=== PATIENT | female | born 1940 | race African-American/Black ===

== ENCOUNTER 2017-10-26 05:54 | Inpatient (IN) | payer OTHER ==
[2017-10-21 10:34] VITALS: BMI 37.5
[~2017-10-26 05:54] MED LIST: ROPIVICAINE 0.2%/MORPH PF/KETOROLAC - 51ML DISP.SYRINGE IA ONE; TRANEXAMIC ACID 1000 MG/10 ML VIAL IVPUSH ONE; oxyCODONE HCL 10 MG SUSTAINED ACTING TABLET PO ONE
[2017-10-26] MEDS ORDERED: oxyCODONE HCL 10 MG SUSTAINED ACTING TABLET ONE (06:24)
[2017-10-26] MEDS ORDERED: MIDAZOLAM HCL 2 MG/2 ML SINGLE DOSE VIAL ONE (06:49)
[2017-10-26] MEDS ORDERED: BUPIVACAINE HCL/PF (5 MG/ML) 30 ML VIAL IJ ONE (06:49)
[2017-10-26] MEDS ORDERED: DEXAMETHASONE SOD PHOSPHATE/PF 10 MG/ML SDV ONE (06:49)
[2017-10-26] MEDS ORDERED: BUPIVACAINE HCL/PF 0.5% (5MG/ML) 10 ML VIAL ONE (06:57)
[2017-10-26] MEDS ORDERED: ePHEDrine SULFATE 50 MG/1 ML AMPULE ONE (07:02)
[2017-10-26] MEDS ORDERED: PROPOFOL 20 ML ONE ×5 (07:03)
[2017-10-26] MEDS ORDERED: SUCCINYLCHOLINE CHLORIDE 200 MG/10 ML VIAL ONE (07:03)
[2017-10-26] MEDS ORDERED: TRANEXAMIC ACID 1000 MG/10 ML VIAL ONE (07:08)
[2017-10-26] MEDS ORDERED: ceFAZolin SODIUM 1 GM VIAL ONE (07:08)
[2017-10-26] MEDS ORDERED: ROCURONIUM BROMIDE 50 MG/5 ML VIAL ONE (07:13)
[2017-10-26] MEDS ORDERED: VANCOMYCIN 1,000 MG in DEXTROSE 5%-WATER - 250 ML IVPB ONE (08:00)
[2017-10-26] MEDS ORDERED: CEFAZOLIN 2 GM in DEXTROSE 5%-WATER - 50 ML IVPB ONE (08:00)
[2017-10-26] MEDS ORDERED: ROPIVICAINE 0.2%/MORPH PF/KETOROLAC - 51ML DISP.SYRINGE IA ONE (09:00)
[2017-10-26] MEDS ORDERED: TRANEXAMIC ACID 1000 MG/10 ML VIAL IVPUSH ONE (09:15)
[2017-10-26] MEDS ORDERED: ALBUTEROL SO4 18 GM HFA INHALER IH PRN (10:22)
--- NOTE | 2017-10-26 10:22 | OP ---
Operative Note - Note: Operative Date: 10/26/17 Pre-Operative Diagnosis: Right hip DJD Operation: Right total hip replacement Implants: [place]. Cup - Tritanium, 52mm. Poly - 28mm, neutral. Stem - SecureFit Advanced, #6, High Offset. Head - 28mm, Biolox/Ceramic, +4mm Post-Operative Diagnosis: Same as Pre-op Surgeon: Burt Rousseau [employer] Editor: Gunnar Rousseau Anesthesia: Spinal Specimens Removed: Right femoral head Estimated Blood Loss (mls): 150 Operative Report Dictated: Yes
[2017-10-26] MEDS ORDERED: ONDANSETRON 4 MG/2 ML VIAL IVPUSH PRN (10:24)
[2017-10-26] MEDS ORDERED: MAG HYDROX/AL HYDROX/SIMETH 30 ML UNIT-DOSE CUP PO PRN (10:24)
[2017-10-26] MEDS ORDERED: MAGNESIUM HYDROX 2400MG/30ML ORAL SUSPENSION 30 ML CUP PO PRN (10:24)
[2017-10-26] MEDS ORDERED: LACTATED RINGERS SOLUTION 1,000 ML IV SCH ×2 (10:30→13:59)
[2017-10-26] MEDS ORDERED: ACETAMINOPHEN 325 MG TABLET (FP) ONE (11:14)
--- NOTE | 2017-10-26 13:45 | HP ---
HISTORY OF PRESENT ILLNESS Patient is a 77 y/o female with a past medical history of asthma, parosymal afib (coumadin), aortic stenosis, breast cancer, hypothyroidism, hypertension, OA, and hyperlipidemia. Patient was admitted for elective right total hip replacement, Dr Rousseau, 10/26/17. PCP: Dr Hudson life insurance agent: Dr Betancourt Recent travel: none Family History: non contributory Social History:resides at home Smoking:none Alcohol:none Drugs: none REVIEW OF SYSTEMS CONSTITUTIONAL: Absent: fever, chills, diaphoresis, generalized weakness, malaise, loss of appetite, weight change HEENT: Absent: rhinorrhea, nasal congestion, throat pain, throat swelling, difficulty swallowing, mouth swelling, ear pain, eye pain, visual changes CARDIOVASCULAR: Absent: chest pain, syncope, palpitations, irregular heart rate, lightheadedness , peripheral edema RESPIRATORY: Absent: cough, shortness of breath, dyspnea with exertion, orthopnea, wheezing, stridor, hemoptysis GASTROINTESTINAL: Absent: abdominal pain, abdominal distension, nausea, vomiting, diarrhea, constipation, melena, hematochezia GENITOURINARY: Absent: dysuria, frequency, urgency, hesitancy, hematuria, flank pain, genital pain MUSCULOSKELETAL: Present: right hip pain Absent: myalgia, arthralgia, joint swelling, back pain, neck pain SKIN: Absent: rash, itching, pallor HEMATOLOGIC/IMMUNOLOGIC: Absent: easy bleeding, easy bruising, lymphadenopathy, frequent infections ENDOCRINE: Absent: unexplained weight gain, unexplained weight loss, heat intolerance, cold intolerance NEUROLOGIC: Absent: headache, focal weakness or paresthesias, dizziness, unsteady gait, seizure, mental status changes, bladder or bowel incontinence PSYCHIATRIC: Absent: anxiety, depression, suicidal or homicidal ideation, hallucinations. PHYSICAL EXAMINATION: Vital Signs Temperature 97.8 F 10/26/17 11:35 Pulse Rate 60 10/26/17 11:35 Respiratory Rate 16 10/26/17 11:35 Blood Pressure 157/85 10/26/17 11:35 O2 Sat by Pulse Oximetry (%) 98 10/26/17 11:25 GENERAL: Awake, alert, and fully oriented, in no acute distress. HEAD: Normal with no signs of trauma. EYES: Pupils equal, round and reactive to light, extraocular movements intact, sclera anicteric, conjunctiva clear. No lid lag. EARS, NOSE, THROAT: Ears normal, nares patent, oropharynx clear without exudates. Moist mucous membranes. NECK: Normal range of motion, supple without lymphadenopathy, JVD, or masses. LUNGS: Breath sounds equal, clear to auscultation bilaterally. No wheezes, and no crackles. No accessory muscle use. HEART: Regular rate and rhythm, normal S1 and S2, 3/6 systolic murmur, rub or gallop. ABDOMEN: Soft, nontender, not distended, normoactive bowel sounds, no guarding, no rebound, no masses. No hepatomegaly or splenomegaly. MUSCULOSKELETAL: Normal range of motion at all joints. No bony deformities or tenderness. No CVA tenderness. UPPER EXTREMITIES: 2+ pulses, warm, well-perfused. No cyanosis. No clubbing. No peripheral edema. LOWER EXTREMITIES: 2+ pulses, warm, well-perfused. No calf tenderness. No peripheral edema. RIGHT LOWER EXTREMITY: aguacel dressing intact, CDI, less than 3 second capillary refill, + 3 pedal pulse NEUROLOGICAL: Cranial nerves II-XII intact. Normal speech. Normal gait. PSYCHIATRIC: Cooperative. Good eye contact. Appropriate mood and affect. SKIN: Warm, dry, normal turgor, no rashes or lesions noted, normal capillary refill. Active Medications Generic Name Dose Route Start Last Admin Trade Name Freq PRN Reason Stop Dose Admin Al Hydroxide/Mg Hydroxide 30 ml 10/26/17 10:24 Mylanta Oral Suspension - PO Q4H PRN DYSPEPSIA Albuterol Sulfate 1 - 2 puff 10/26/17 10:22 Ventolin Hfa Inhaler - IH QID PRN WHEEZING Atorvastatin Calcium 40 mg 10/26/17 22:00 Lipitor - PO HS BRISEIDA Cholecalciferol 2,000 unit 10/27/17 10:00 Vitamin D3 - PO DAILY BRISEIDA Enoxaparin Sodium 30 mg 10/26/17 22:00 Lovenox - SQ BID BRISEIDA Furosemide 40 mg 10/26/17 18:00 Lasix - PO BID@0600,1800 BRISEIDA Cefazolin Sodium/Dextrose 2 gm in 50 mls @ 100 mls/hr 10/26/17 16:00 Ancef 2 Gm Premixed Ivpb - IVPB 10/27/17 00:29 Q8H BRISEIDA Lactated Ringer's 1,000 mls @ 125 mls/hr 10/26/17 10:30 10/26/17 12:52 Lactated Ringers Solution IV 10/27/17 06:00 Not Given [facility] Levothyroxine Sodium 125 mcg 10/27/17 07:00 Synthroid - PO DAILY@0700 BRISEIDA Magnesium Hydroxide 30 ml 10/26/17 10:24 Milk Of Magnesia - PO PRN PRN CONSTIPATION Metoprolol Succinate 25 mg 10/27/17 10:00 Toprol Xl - PO DAILY [facility] Ondansetron HCl 4 mg 10/26/17 10:24 Zofran Injection IVPUSH Q6H PRN NAUSEA Pantoprazole Sodium 40 mg 10/27/17 10:00 Protonix - PO DAILY [facility] Senna/Docusate Sodium 2 tablet 10/26/17 22:00 Pericolace - PO BID [facility] ASSESSMENT/PLAN: 1) MS: right total hip replacement (POD #0) - Dr Rousseau consulted and following - prn pain medication - physical therapy as per the orthopedist 2) cardiovascular aortic stenosis - echo reviewed 06/06/17, normal LV, ef 65%, moderate aortic stenosis - strict monitoring of I/o diastolic CHF - pt appears euvolemic on exam - continue lasix 40mg bid, pt's home dose paroxysmal afib - nsr, continue toprol - hold coumadin, restart once cleared by orthopedist, continue lovenox 3) pulm asthma - continue prn albuterol - incentive spirometer f/e/n - low sodium diet - replete lytes prn ppx - protonix - lovenox - scd/luis - pt dispo: pt requires inpatient admission. Visit type - Case Type Case Type: Scheduled Admission - Emergency Emergency Visit: No - New patient This patient is new to me today: Yes Date on this admission: 10/26/17 - Critical Care Critical Care patient: No
[2017-10-26] MEDS ORDERED: oxyCODONE HCL 5 MG TABLET ONE (14:08)
[2017-10-26] MEDS ORDERED: oxyCODONE HCL 5 MG TABLET PO ONE (14:09)
[2017-10-26] MEDS ORDERED: oxyCODONE HCL 5 MG TABLET PO PRN (14:24)
[2017-10-26] MEDS: oxyCODONE HCL 5 MG TABLET PO PRN (14:57)
[2017-10-26] MEDS ORDERED: HYDROmorphone HCL CARPU-JECT 2 MG/1 ML DISP.SYRIN IVPB PRN (15:57)
[2017-10-26] MEDS ORDERED: KETOROLAC TROMETHAMINE 30 MG/1 ML VIAL IVPUSH ONE (16:00)
[2017-10-26] MEDS: CEFAZOLIN 2 GM/D5W 2 GM/50 ML ML IVPB SCH ×2 (16:58→23:58)
--- NOTE | 2017-10-26 21:12 | OP ---
DATE OF OPERATION: 10/26/2017 SURGEON: Burt Rousseau MD RN OTOLARYNGOLOGY: Gunnar Rousseau MD PREOPERATIVE DIAGNOSIS: Osteoarthritis, right hip. OPERATION PERFORMED: Right cemented total hip arthroplasty (Ta). ANESTHESIA: Spinal with conscious sedation. ANTIBIOTICS GIVEN: Kefzol 2 g given preoperative, vancomycin 1 g preoperative, Kefzol 1 g given at the time of seating of the femoral component. BLOOD LOSS: 150 mL PROCEDURE: The patient was correctly identified and brought into the operating room. The right lower extremity was prepped, free draped in the routine manner with Betadine scrub solution, wiped off with alcohol, DuraPrep applied. A free drape applied. The imaging was available for intraoperative evaluation and a timeout was called appropriately. With the hip and knee flexed at 45 degrees, an incision was made in the skin centered over the greater trochanter. The fascia was opened. A Charnley retractor was inserted in the subfascial plane. Hemostasis achieved. Using anterior-biased direct lateral approach, the anterior slivers of gluteus medius were lifted, the entire capsule lifted off the femur from the superolateral aspect of the femoral head to the inferomedial aspect of the femoral head with 2 radial cuts placed longitudinally in the capsule to help an easy dislocation by flexion, adduction, external rotation. The neck cut was made 1 cm above the lesser trochanter in accordance with the principles of Charnley. An anterior, posterior, inferior retractor was inserted. This gave very adequate access to the acetabulum. The reaming using the [employer] reaming system was to size 51, and a size 52 multi-hole cup was inserted. This was a grit-blasted Triathlon-type cup. This was closed at 40 degrees and about 5 degrees anteverted. The cup was inserted with solid Press-Fit fixation being achieved. A 28-mm liner, 4 crosslink polyethylene inserted. No complications in cup seating. The hip was flexed, adducted, externally rotated. After holding the hip abductor muscle out of harm's way, the femoral component was reamed and broached to size 6. The +4/28-mm ceramic head applied to the trunnion, reduced into position. Complete stability in flexion, abduction, internal rotation as well as extension and external rotation achieved. A small fracture of the greater trochanter was left alone. The periosteum was left intact. The entire trochanter was sutured back into position and held in position accordingly. This all within the confines of the soft tissue sleeve. There was no need to affix this small fragment back into position. The closure was as follows: After thorough lavage of the tissues, fascia 1 Vicryl, subcutaneous 1 and 2-0 Vicryl, skin 3-0 Monocryl, Steri-Strips. DRAINAGE: Nil. Operation went well. No complications. MD ZAYDA Naylor/[id number]
[2017-10-26] MEDS: ATORVASTATIN CA 40 MG TABLET (FP) PO SCH (22:01)
[2017-10-26] MEDS: GABAPENTIN 300 MG CAPSULE (FP) PO SCH (22:01)
[2017-10-26] MEDS: SENNOSIDES/DOCUSATE COMBO (SENNA PLUS) TABLET (UD) PO SCH (22:01)
[2017-10-26] MEDS: ENOXAPARIN NA (PORCINE) 30 MG/0.3 ML DISP.SYRIN SQ SCH (22:02)
[2017-10-26] MEDS: ACETAMINOPHEN 325 MG TABLET (FP) PO SCH (22:02)
[2017-10-27] MEDS: FUROSEMIDE 40 MG TABLET (FP) PO SCH ×2 (06:17→17:55)
[2017-10-27] MEDS: LEVOTHYROXINE NA 125 MCG TABLET (FP) PO SCH (06:18)
[2017-10-27] MEDS: ACETAMINOPHEN 325 MG TABLET (FP) PO SCH ×4 (06:18→17:55)
[2017-10-27] MEDS: oxyCODONE HCL 10 MG SUSTAINED ACTING TABLET PO SCH ×3 (06:18→21:49)
[2017-10-27 08:44] LABS: ANION GAP 10 (8-16); BLOOD UREA NITROGEN 22 mg/dl (7-18); CALCIUM 8.3 mg/dl (8.4-10.2); CHLORIDE 95 mmol/L (98-107); CO2 28 mmol/L (22-28); CREATININE 0.9 mg/dl (0.6-1.3); GLUCOSE,RANDOM 136 mg/dl (74-106); POTASSIUM 3.7 mmol/L (3.5-5.1); SODIUM 133 mmol/L (136-145)
[2017-10-27 08:52] LABS: HEMATOCRIT 31.3 % (32.4-45.2); HEMOGLOBIN 10.1 GM/dl (10.7-15.3); MCH 28.2 pg (25.7-33.7); MCHC 32.3 g/dl (32.0-36.0); MEAN CELL VOLUME 87.4 fl (80-96); MEAN PLT VOLUME 13.6 fl (7.5-11.1); RBC 3.58 M/mm3 (3.60-5.2); RDW 13.1 % (11.6-15.6); WHITE BLOOD COUNT 16.7 K/mm3 (4.0-10.8)
--- NOTE | 2017-10-27 08:56 | PN ---
Physical Exam: SUBJECTIVE: Patient seen and examined, ambulatory at bedside with a waker, reports pain to right lower extremity upon movement. OBJECTIVE:Patient is a 77 y/o female with a past medical history of asthma, parosymal afib (coumadin), aortic stenosis, breast cancer, hypothyroidism, hypertension, OA, and hyperlipidemia. Vital Signs Period Temp Pulse Resp BP Sys/Kebede Pulse Ox Last 24 Hr 97.4 F-97.8 F 53-72 16-19 145-175/53-95 98-100 GENERAL: The patient is awake, alert, and fully oriented, in no acute distress. HEAD: Normal with no signs of trauma. EYES: PERRL, extraocular movements intact, sclera anicteric, conjunctiva clear. No ptosis. ENT: Ears normal, nares patent, oropharynx clear without exudates, moist mucous membranes. NECK: Trachea midline, full range of motion, supple. LUNGS: Breath sounds equal, clear to auscultation bilaterally, no wheezes, no crackles, no accessory muscle use. HEART: Regular rate and rhythm, S1, S2 without murmur, rub or gallop. ABDOMEN: Soft, nontender, nondistended, normoactive bowel sounds, no guarding, no rebound, no hepatosplenomegaly, no masses. EXTREMITIES: 2+ pulses, warm, well-perfused, no edema. RIGHT LOWER EXTREMITY: aguacel dressing intact, CDI, less than 3 second capillary refill, +3 pedal pulse. NEUROLOGICAL: Cranial nerves II through XII grossly intact. Normal speech, gait not observed. PSYCH: Normal mood, normal affect. SKIN: Warm, dry, normal turgor, no rashes or lesions noted Active Medications Generic Name Dose Route Start Last Admin Trade Name Freq PRN Reason Stop Dose Admin Acetaminophen 650 mg 10/26/17 18:00 10/27/17 06:18 Tylenol - PO 10/29/17 17:59 650 mg Q6H BRISEIDA Administration Al Hydroxide/Mg Hydroxide 30 ml 10/26/17 10:24 Mylanta Oral Suspension - PO Q4H PRN DYSPEPSIA Albuterol Sulfate 1 - 2 puff 10/26/17 10:22 Ventolin Hfa Inhaler - IH QID PRN WHEEZING Atorvastatin Calcium 40 mg 10/26/17 22:00 10/26/17 22:01 Lipitor - PO 40 mg HS BRISEIDA Administration Cholecalciferol 2,000 unit 10/27/17 10:00 Vitamin D3 - PO DAILY [facility] Enoxaparin Sodium 30 mg 10/26/17 22:00 10/26/17 22:02 Lovenox - SQ 30 mg BID [facility] Administration Fentanyl 50 mcg 10/26/17 14:24 Sublimaze Injection - IVPUSH [id number] PRN PAIN Furosemide 40 mg 10/26/17 18:00 10/27/17 06:17 Lasix - PO 40 mg BID@0600,1800 [facility] Administration Gabapentin 300 mg 10/26/17 22:00 10/26/17 22:01 Neurontin - PO 300 mg BID [facility] Administration Levothyroxine Sodium 125 mcg 10/27/17 07:00 10/27/17 06:18 Synthroid - PO 125 mcg DAILY@0700 [facility] Administration Magnesium Hydroxide 30 ml 10/26/17 10:24 Milk Of Magnesia - PO PRN PRN CONSTIPATION Metoprolol Succinate 25 mg 10/27/17 10:00 Toprol Xl - PO DAILY [facility] Ondansetron HCl 4 mg 10/26/17 10:24 Zofran Injection IVPUSH Q6H PRN NAUSEA Oxycodone HCl 5 mg 10/26/17 14:24 10/27/17 06:21 Roxicodone - PO 5 mg Q3H PRN Administration PAIN LEVEL 1-5 Oxycodone HCl 10 mg 10/26/17 14:24 10/26/17 14:57 Roxicodone - PO 10 mg Q3H PRN Administration PAIN LEVEL 6-10 Oxycodone HCl 10 mg 10/26/17 22:00 10/27/17 06:18 Oxycontin - PO 10/29/17 14:24 Not Given BID [facility] Pantoprazole Sodium 40 mg 10/27/17 10:00 Protonix - PO DAILY [facility] Senna/Docusate Sodium 2 tablet 10/26/17 22:00 10/26/17 22:01 Pericolace - PO 2 tablet BID [facility] Administration ASSESSMENT/PLAN: 1) MS: right total hip replacement (POD #1) - Dr Rousseau consulted and following - prn pain medication - physical therapy as per the orthopedist 2) cardiovascular aortic stenosis - echo reviewed 06/06/17, normal LV, ef 65%, moderate aortic stenosis - strict monitoring of I/o diastolic CHF - pt appears euvolemic on exam - continue lasix 40mg bid, pt's home dose paroxysmal afib - nsr, continue toprol - discussed with Dr Rousseau, restart coumadin first dose tonight, INR in AM will bridge with lovenox 3) pulm asthma - continue prn albuterol - incentive spirometer f/e/n - low sodium diet - replete lytes prn ppx - protonix - lovenox/coumadin - scd/luis - pt dispo: pt requires inpatient admission. Visit type - Emergency Visit Emergency Visit: No - New Patient This patient is new to me today: No - Critical Care Critical Care patient: No - Discharge Referral Referred to [facility] Med P.C.: No
[2017-10-27] MEDS: PANTOPRAZOLE 40 MG TABLET (FP) PO SCH (09:22)
[2017-10-27] MEDS: SENNOSIDES/DOCUSATE COMBO (SENNA PLUS) TABLET (UD) PO SCH ×2 (09:23→21:49)
[2017-10-27] MEDS: CHOLECALCIFEROL (VITAMIN D3) 1,000 UNIT TABLET (FP) PO SCH (09:23)
[2017-10-27] MEDS: METOPROLOL SUCCINATE 25 MG TAB.SR.24H (FP) PO SCH (09:23)
[2017-10-27] MEDS: GABAPENTIN 300 MG CAPSULE (FP) PO SCH ×2 (09:23→21:49)
[2017-10-27] MEDS: ENOXAPARIN NA (PORCINE) 30 MG/0.3 ML DISP.SYRIN SQ SCH ×2 (09:24→21:51)
[2017-10-27 09:53] LABS: PLATELET COUNT 208 K/MM3 (134-434)
[2017-10-27] MEDS ORDERED: PATIENT'S OWN MEDICATION (NON-FORMULARY) (Omeprazole [Omeprazole] 20 MG) PO SCH (10:00)
--- NOTE | 2017-10-27 10:58 | PN ---
Progress Note (short form) - Note Progress Note: 77F POD1 s/p right THR under spinal anesthetic with peripheral nerve blocks for post operative pain control. Pt is moderately controlled, does not report any anesthetic complications. Sensory and motor function intact in bilateral lower extremities.
[2017-10-27] MEDS ORDERED: WARFARIN NA 2 MG TABLET (UD) PO SCH (18:00)
[2017-10-27] MEDS: oxyCODONE HCL 5 MG TABLET PO PRN (19:45)
[2017-10-27] MEDS: ATORVASTATIN CA 40 MG TABLET (FP) PO SCH (21:49)
[2017-10-28] MEDS: ACETAMINOPHEN 325 MG TABLET (FP) PO SCH ×3 (04:06→12:56)
[2017-10-28] MEDS: oxyCODONE HCL 5 MG TABLET PO PRN ×2 (04:06→12:56)
[2017-10-28] MEDS: LEVOTHYROXINE NA 125 MCG TABLET (FP) PO SCH (06:10)
[2017-10-28] MEDS: FUROSEMIDE 40 MG TABLET (FP) PO SCH (06:10)
[2017-10-28 08:47] LABS: HEMATOCRIT 29.2 % (32.4-45.2); HEMOGLOBIN 9.4 GM/dl (10.7-15.3); MCH 28.1 pg (25.7-33.7); MCHC 32.1 g/dl (32.0-36.0); MEAN CELL VOLUME 87.7 fl (80-96); MEAN PLT VOLUME 13.3 fl (7.5-11.1); RBC 3.33 M/mm3 (3.60-5.2); RDW 13.4 % (11.6-15.6); WHITE BLOOD COUNT 16.1 K/mm3 (4.0-10.8)
[2017-10-28 08:53] LABS: ANION GAP 9 (8-16); BLOOD UREA NITROGEN 28 mg/dl (7-18); CALCIUM 8.4 mg/dl (8.4-10.2); CHLORIDE 99 mmol/L (98-107); CO2 27 mmol/L (22-28); GLUCOSE,RANDOM 118 mg/dl (74-106); MAGNESIUM 1.8 mg/dL (1.8-2.4); POTASSIUM 3.5 mmol/L (3.5-5.1); SODIUM 135 mmol/L (136-145)
[2017-10-28 09:01] LABS: INR 1.07 (0.82-1.09)
[2017-10-28] MEDS: oxyCODONE HCL 10 MG SUSTAINED ACTING TABLET PO SCH (09:45)
[2017-10-28] MEDS ORDERED: POTASSIUM CHLORIDE TABS 20 MEQ TABLET.ER (FP) PO SCH (10:00)
--- NOTE | 2017-10-28 10:48 | DS ---
Physical Exam: SUBJECTIVE: Patient seen and examined, sitting in bedside chair, reports a dull ache to the right hip, denies any paresthesia to the extremity, patient denies any chest pain or shortness of breath. OBJECTIVE: Patient is a 77 y/o female with a past medical history of asthma, parosymal afib (coumadin), aortic stenosis, breast cancer, hypothyroidism, hypertension, OA, and hyperlipidemia. Patient was admitted for elective right total hip replacement, Dr Rousseau, 10/26/17. Vital Signs Period Temp Pulse Resp BP Sys/Kebede Pulse Ox Last 24 Hr 98.0 F-98.5 F 59-92 18-19 126-142/43-58 94-98 PHYSICAL EXAM GENERAL: The patient is awake, alert, and fully oriented, in no acute distress. HEAD: Normal with no signs of trauma. EYES: PERRL, extraocular movements intact, sclera anicteric, conjunctiva clear. No ptosis. ENT: Ears normal, nares patent, oropharynx clear without exudates, moist mucous membranes. NECK: Trachea midline, full range of motion, supple. LUNGS: Breath sounds equal, clear to auscultation bilaterally, no wheezes, no crackles, no accessory muscle use. HEART: Regular rate and rhythm, S1, S2 without murmur, rub or gallop. ABDOMEN: Soft, nontender, nondistended, normoactive bowel sounds, no guarding, no rebound, no hepatosplenomegaly, no masses. EXTREMITIES: 2+ pulses, warm, well-perfused, no edema. RIGHT LOWER EXTREMITY: aguacel dressing intact, CDI, less than 3 second capillary refill, +3 pedal pulse. NEUROLOGICAL: Cranial nerves II through XII grossly intact. Normal speech, gait not observed. PSYCH: Normal mood, normal affect. SKIN: Warm, dry, normal turgor, no rashes or lesions noted LABS Laboratory Results - last 24 hr 10/28/17 10/28/17 10/28/17 07:50 07:50 07:50 WBC 16.1 H RBC 3.33 L Hgb 9.4 L Hct 29.2 L MCV 87.7 MCH 28.1 MCHC 32.1 RDW 13.4 MPV 13.3 H Neutrophils % No Result Required. Lymphocytes % No Result Required. PT with INR 12.0 INR 1.07 Sodium 135 L Potassium 3.5 Chloride 99 Carbon Dioxide 27 Anion Gap 9 BUN 28 H D Creatinine 1.0 Random Glucose 118 H Calcium 8.4 Magnesium 1.8 HOSPITAL COURSE: Patient was admitted from the emergency department for a right total hip replacement (POD #2), Dr Rousseau. Patient ambulated independently with the assistance of a walker on POD #1, with physical therapy. Pain was managed with both narcotic and non-narcotic pain medication. Patient has a past medical history of aortic stenosis, echo reviewed 06/06/17, normal LV, ef 65%, moderate aortic stenosis, strict monitoring of I/O. Patient has a past medical history of diastolic CHF, she was euvolemic throughtout admission. lasix 40mg bid was continued, patient's home dose. Patient has a past medical history of paroxysmal afib,toprol was continued. Discussed with Dr Rousseau, restarted coumadin on 10/27/17, INR noted with bridge to coumadin. Patient has past medical history of asthma, no acute excerbation was noted. PLAN - discharge to short term rehab to SNF, upon the request of patient - continue lovenox with bridge to coumadin Date of Admission:10/26/17 Date of Discharge: 10/28/17 Minutes to complete discharge: 45 Discharge Summary Reason For Visit: OSTEOARTHRITIS RIGHT HIP Condition: Improved - Instructions Diet, Activity, Other Instructions: Post-op Instructions-Total Hip Replacement Call the office for a follow-up appointment in 1 week continue lovenox and coumadin until INR is therepeutic Apply Graduated Compression Stockings (TEDs) to both lower extremities- remove daily for hygiene ONLY Apply cold packs to affected area for 15 minutes every 2 hours. Physical Therapist will come to your home for the first 5 days. You will be set up with outpatient PT at your first post-operative visit. Patient may ambulate as tolerated-encourage self care (at least every 2-3 hours while awake) with walker or cane Maintain Aquacel (waterproof) dressing to operative wound (will be removed by surgeon at first office visit) Shower with Aquacel dressing in place-if Aquacel integrity compromised, remove and apply dry sterile dressing and notify Orthopedist. DO NOT SHOWER unless Orthopedists approves without Aquacel dressing CONTACT THE OFFICE FOR ANY CHANGE IN YOUR CONDITION (for example-fever greater than 102 degrees,excessive bleeding from operative site, purulent drainage, severe swelling or pain) GO TO THE EMERGENCY ROOM IF THERE IS A MEDICAL EMERGENCY Hip Precautions: * Keep a rolled towel under affected heel while in bed or chair (to keep knee in extension) * If you have any questions, please do not hesitate to call the office Referrals: Gunnar Rousseau MD [Staff Physician] - Disposition: [facility] - Home Medications Comprehensive Discharge Medication List: Ambulatory Orders Albuterol Sulfate Inhaler - [Ventolin Hfa Inhaler -] 1 - 2 inh PO QID PRN Atorvastatin Ca [Lipitor] 40 mg PO HS 10/21/17 Cholecalciferol (Vitamin D3) [Vitamin D] 2,000 unit PO DAILY 10/21/17 Furosemide [Lasix -] 40 mg PO BID 10/21/17 Levothyroxine [Synthroid -] 125 mcg PO DAILY 10/21/17 Metoprolol Succinate [Toprol Xl] 25 mg PO DAILY 10/21/17 RX: Omeprazole 20 mg PO DAILY 10/21/17 RX: Warfarin Sodium 4 mg PO HS 10/21/17 This patient is new to me today: No Emergency Visit: No Critical Care patient: No - Discharge Referral Referred to [facility] Med P.C.: No
[2017-10-28] MEDS: CHOLECALCIFEROL (VITAMIN D3) 1,000 UNIT TABLET (FP) PO SCH (10:52)
[2017-10-28] MEDS: SENNOSIDES/DOCUSATE COMBO (SENNA PLUS) TABLET (UD) PO SCH (10:52)
[2017-10-28] MEDS: GABAPENTIN 300 MG CAPSULE (FP) PO SCH (10:52)
[2017-10-28] MEDS: ENOXAPARIN NA (PORCINE) 30 MG/0.3 ML DISP.SYRIN SQ SCH (10:53)
[2017-10-28] MEDS: PANTOPRAZOLE 40 MG TABLET (FP) PO SCH (10:53)
[2017-10-28] MEDS: METOPROLOL SUCCINATE 25 MG TAB.SR.24H (FP) PO SCH (10:55)
[2017-10-28 11:35] LABS: PLATELET COUNT 187 K/MM3 (134-434)
[2017-10-28 11:36] LABS: PLATELET ESTIMATE ADEQUATE
--- NOTE | 2017-10-28 12:57 | PATH ---
Surgical Pathology Report Patient Name: MOY TENORIO Med. Rec. #: [id number] /Age/Gender: 1940 (Age: 77) / F Account: [id number] Location: [facility] MED-SURG Taken: 10/26/2017 Received: 10/26/2017 Reported: 10/28/2017 Physicians: Burt Rousseau M.D. Specimen(s) Received RIGHT FEMORAL HEAD Clinical History Osteoarthritis Final Diagnosis FEMORAL HEAD, RIGHT, TOTAL HIP REPLACEMENT: BONE WITH DEGENERATIVE JOINT DISEASE. Electronically Signed Radha Day M.D. Gross Description Received in formalin, labeled "right femoral head," is a 4.5 x 4.5 x 4.2 cm. femoral head with a 1.3 cm in length portion of femoral neck attached. The margin of resection is smooth. No areas of eburnation are identified. The articular surface is smalls-yellow and diffusely granular. The underlying trabecular bone is yellow and hard. A door to door sales representative section is submitted in one cassette, following decalcification. 10/27/2017 [facility]2017
[2017-10-28 14:08] VITALS: BP 148/45; PULSE 75; TEMP 98
== END 2017-10-28 16:11 | DRG 470 ==
LOC: FM/S 05:54
PROVIDERS: ADMIT Internal Medicine; ATTEND Nurse Practitioner Family
PROC: 0SR90J9 Replacement of Right Hip Joint with Synthetic Substitute, Cemented, Open Approach (ICD-10-PCS; principal; 2017-10-26 08:43)
DX: M16.11 Unilateral primary osteoarthritis, right hip (principal); I50.30 Unspecified diastolic (congestive) heart failure; I11.0 Hypertensive heart disease with heart failure; I35.0 Nonrheumatic aortic (valve) stenosis; J45.909 Unspecified asthma, uncomplicated; I48.0 Paroxysmal atrial fibrillation; E03.9 Hypothyroidism, unspecified; I10 Essential (primary) hypertension; E78.5 Hyperlipidemia, unspecified; Z79.01 Long term (current) use of anticoagulants; Z85.3 Personal history of malignant neoplasm of breast
CPT/HCPCS: 36415; 73523-TC; 80048; 83735; 85025; 85027; 85610; 88304-TC; 88311-TC; 94010; 94760; 97116-GP; 97162-GP